=== PATIENT | male | born 1990 | race Caucasian/White ===

== ENCOUNTER 2020-12-07 08:49 | Emergency (ER) | payer OTHER ==
[~2020-12-07] VITALS: Ht 170.2 cm; Wt 73.5 kg
[2020-12-07 09:55] VITALS: BP 142/80
== END 2020-12-07 09:55 | disposition home or self-care (01) ==
LOC: M.ERS 08:49
DX: S61.011A Laceration without foreign body of right thumb without damage to nail, initial encounter (principal); Z88.0 Allergy status to penicillin; W26.0XXA Contact with knife, initial encounter; Y93.89 Activity, other specified; Y92.89 Other specified places as the place of occurrence of the external cause; Y99.8 Other external cause status

== ENCOUNTER 2021-04-06 16:53 | Emergency (ER) | payer OTHER ==
[~2021-04-06] VITALS: Ht 170.2 cm; Wt 74.8 kg
[2021-04-06 18:03] VITALS: BP 151/70
== END 2021-04-06 18:04 | disposition home or self-care (01) ==
LOC: M.ERS 16:53
DX: T15.11XA Foreign body in conjunctival sac, right eye, initial encounter (principal); Z88.0 Allergy status to penicillin; X58.XXXA Exposure to other specified factors, initial encounter; Y93.89 Activity, other specified; Y92.89 Other specified places as the place of occurrence of the external cause; Y99.8 Other external cause status